=== PATIENT | female | born 1960 | race African-American/Black ===

== ENCOUNTER 2019-02-22 18:10 | Inpatient (IN) | payer OTHER ==
[~2019-02-22] VITALS: Ht 175.3 cm; Wt 81.4 kg
[2019-02-22 18:15] VITALS: Ht 175.3 cm; Wt 81.4 kg
[2019-02-22 21:19] LABS: BASOPHIL % 0.4 % (0-2); PLATELET COUNT 208 x10^3mcL (130-400)
[2019-02-22 21:31] LABS: CALCIUM 9.1 mg/dL (8.5-10.1); CARBON DIOXIDE 23.2 mmol/L (21-32); CREATININE SERUM 1.1 mg/dL (0.6-1.0); POTASSIUM SERUM 4.2 mmol/L (3.5-5.1)
[2019-02-22 21:36] LABS: ALBUMIN 3.9 g/dL (3.4-5.0); BILIRUBIN TOTAL 0.4 mg/dL (0.20-1.00); TOTAL PROTEIN, SERUM 8.1 g/dL (6.4-8.2)
[2019-02-23] MEDS ORDERED: AMBIEN5 MG PO (05:55)
[2019-02-23] MEDS ORDERED: DILANTIN100 MG PO (05:55)
[2019-02-23] MEDS ORDERED: PERCOCET1 TA5 PO (05:55)
[2019-02-23] MEDS ORDERED: KEPPRA1000 M1 PO (05:55)
[2019-02-23] MEDS ORDERED: ATIVAN0.5 M1 PO (05:56)
[2019-02-23 08:47] VITALS: BP 135/90
[2019-02-23 09:46] VITALS: BP 135/90
[2019-02-23 12:44] LABS: microscopic required? NO
[2019-02-23 13:01] LABS: urine erythrocyte NEGATIVE (NEGATIVE)
[2019-02-23 16:50] VITALS: BP 133/59
[2019-02-23 18:06] VITALS: BP 133/59
[2019-02-23 20:02] VITALS: BP 145/79
[2019-02-23 22:06] VITALS: BP 124/66
[2019-02-24 05:55] VITALS: BP 106/61
[2019-02-24 06:33] LABS: BASOPHIL % 0.4 % (0-2); PLATELET COUNT 216 x10^3mcL (130-400)
[2019-02-24 06:40] LABS: CALCIUM 7.9 mg/dL (8.5-10.1); CHLORIDE SERUM 109 mmol/L (98-107); CREATININE SERUM 0.8 mg/dL (0.6-1.0); GFR1 > 60 mL/min; GLUCOSE SERUM 100 mg/dL (74-106); MAGNESIUM 1.7 mg/dL (1.8-2.4); PHOSPHOROUS 4.4 mg/dL (2.5-4.9); POTASSIUM SERUM 4.5 mmol/L (3.5-5.1); SODIUM SERUM 141 mmol/L (136-145)
[2019-02-24 06:41] LABS: RED CELL DISTRIBUTION WIDTH 15.4 % (11.5-14.5)
[2019-02-24 10:03] VITALS: BP 96/49
[2019-02-24] MEDS ORDERED: ACYCLOVIR400 MG PO ×2 (10:51→10:52)
[2019-02-24 12:13] VITALS: BP 111/69
[2019-02-24 17:03] VITALS: BP 128/64
[2019-02-24 20:38] VITALS: BP 110/52
[2019-02-25 05:15] VITALS: BP 135/81
[2019-02-25 06:43] LABS: BASOPHIL % 0.3 % (0-2); PLATELET COUNT 196 x10^3mcL (130-400)
[2019-02-25 07:07] LABS: CALCIUM 7.8 mg/dL (8.5-10.1); CARBON DIOXIDE 24.8 mmol/L (21-32); CHLORIDE SERUM 111 mmol/L (98-107); CREATININE SERUM 0.8 mg/dL (0.6-1.0); GFR1 > 60 mL/min; GLUCOSE SERUM 88 mg/dL (74-106); POTASSIUM SERUM 4.1 mmol/L (3.5-5.1); SODIUM SERUM 144 mmol/L (136-145)
[2019-02-25 07:48] LABS: RED CELL DISTRIBUTION WIDTH 15.6 % (11.5-14.5)
== END 2019-02-25 06:28 | disposition home or self-care (01) | DRG 203 ==
LOC: ED 18:10 → MU 02-23 05:45 → DU 02-23 05:45 → MU 02-23 06:19 → DU 02-23 13:19 → MU 02-24 11:50
PROVIDERS: Emergency Medicine; Internal Medicine; ADMIT Internal Medicine
PROC: 02HV33Z Insertion of Infusion Device into Superior Vena Cava, Percutaneous Approach (ICD-10-PCS; principal; 2019-02-23)
PROC: B548ZZA Ultrasonography of Superior Vena Cava, Guidance (ICD-10-PCS; 2019-02-23)
DX: R07.9 Chest pain, unspecified (principal); B00.9 Herpesviral infection, unspecified; F17.210 Nicotine dependence, cigarettes, uncomplicated; M79.7 Fibromyalgia; G89.29 Other chronic pain; G40.909 Epilepsy, unspecified, not intractable, without status epilepticus; Z53.29 Procedure and treatment not carried out because of patient's decision for other reasons; I10 Essential (primary) hypertension; M54.5 Low back pain; Z98.84 Bariatric surgery status; Z23 Encounter for immunization; Z88.6 Allergy status to analgesic agent; Z91.018 Allergy to other foods
CPT/HCPCS: 85378; 90658; G0378; J2001; J2270; J3010; J7030; J7040; Q0092; Q9967

== ENCOUNTER 2019-04-01 18:49 | Emergency (ER) | payer OTHER ==
[~2019-04-01] VITALS: Ht 175.3 cm; Wt 85.7 kg
[~2019-04-01 18:49] MED LIST: ACYCLOVIR400 MG PO; AMBIEN5 MG PO; ATIVAN0.5 M1 PO; DILANTIN100 MG PO; KEPPRA1000 M1 PO; PERCOCET1 TA5 PO
[2019-04-01 19:05] VITALS: Ht 175.3 cm; Wt 85.7 kg
[2019-04-01 20:36] VITALS: BP 160/101
== END 2019-04-01 20:36 | disposition home or self-care (01) ==
LOC: ED 18:49
DX: J06.9 Acute upper respiratory infection, unspecified (principal); B00.9 Herpesviral infection, unspecified; G89.29 Other chronic pain; M54.9 Dorsalgia, unspecified; Z88.6 Allergy status to analgesic agent; Z88.8 Allergy status to other drugs, medicaments and biological substances

== ENCOUNTER 2019-04-21 17:29 | Emergency (ER) | payer OTHER ==
[~2019-04-21] VITALS: Ht 175.3 cm; Wt 85.3 kg
[2019-04-21 17:34] VITALS: Ht 175.3 cm; Wt 85.3 kg
[2019-04-21 20:26] LABS: CALCIUM 9.3 mg/dL (8.5-10.1); CARBON DIOXIDE 21.3 mmol/L (21-32); CHLORIDE SERUM 105 mmol/L (98-107); CREATININE SERUM 0.9 mg/dL (0.6-1.0); GFR1 > 60 mL/min; GLUCOSE SERUM 85 mg/dL (74-106); POTASSIUM SERUM 4.5 mmol/L (3.5-5.1); SODIUM SERUM 136 mmol/L (136-145)
[2019-04-21 20:32] LABS: ALBUMIN 3.8 g/dL (3.4-5.0); ALKALINE PHOSPHATASE 76 U/L (46-116); ALT/SGPT 21 U/L (14-59); AST/SGOT 18 U/L (15-37); BILIRUBIN TOTAL 0.6 mg/dL (0.20-1.00); LIPASE 140 IU/L (73-393); TOTAL PROTEIN, SERUM 7.3 g/dL (6.4-8.2)
[2019-04-21 21:14] LABS: BASOPHIL % 0.6 % (0-2); PLATELET COUNT 244 x10^3mcL (130-400); RED CELL DISTRIBUTION WIDTH 14.6 % (11.5-14.5)
[2019-04-21 23:17] VITALS: BP 151/58
== END 2019-04-21 23:17 | disposition home or self-care (01) ==
LOC: ED 17:29
PROVIDERS: Emergency Medicine
DX: R07.89 Other chest pain (principal); R10.32 Left lower quadrant pain; F17.210 Nicotine dependence, cigarettes, uncomplicated; M79.7 Fibromyalgia; Z98.84 Bariatric surgery status; Z88.6 Allergy status to analgesic agent; Z88.8 Allergy status to other drugs, medicaments and biological substances
CPT/HCPCS: 83880; J2405; J3010; J3490; J7030

== ENCOUNTER 2019-05-14 07:59 | Emergency (ER) | payer OTHER ==
[~2019-05-14] VITALS: Ht 167.6 cm; Wt 81.6 kg
[2019-05-14 11:00] VITALS: BP 173/84
== END 2019-05-14 11:00 | disposition home or self-care (01) ==
LOC: ED 07:59
DX: M54.42 Lumbago with sciatica, left side (principal); Z88.6 Allergy status to analgesic agent; Z98.84 Bariatric surgery status

== ENCOUNTER 2019-06-28 17:41 | Emergency (ER) | payer OTHER ==
[~2019-06-28] VITALS: Ht 162.6 cm; Wt 86.2 kg
[2019-06-28 18:01] VITALS: Ht 162.6 cm; Wt 86.2 kg
[2019-06-28 18:26] LABS: BASOPHIL % 0.7 % (0-2); PLATELET COUNT 360 x10^3mcL (130-400)
[2019-06-28 18:36] LABS: CALCIUM 8.9 mg/dL (8.5-10.1); CARBON DIOXIDE 23.3 mmol/L (21-32); CHLORIDE SERUM 109 mmol/L (98-107); CREATININE SERUM 0.9 mg/dL (0.6-1.0); GFR1 > 60 mL/min; GLUCOSE SERUM 73 mg/dL (74-106); POTASSIUM SERUM 3.9 mmol/L (3.5-5.1); SODIUM SERUM 142 mmol/L (136-145)
[2019-06-28 18:41] LABS: ALBUMIN 3.7 g/dL (3.4-5.0); ALKALINE PHOSPHATASE 92 U/L (46-116); ALT/SGPT 15 U/L (14-59); AST/SGOT 13 U/L (15-37); BILIRUBIN TOTAL 0.23 mg/dL (0.20-1.00); LIPASE 113 IU/L (73-393); TOTAL PROTEIN, SERUM 8.1 g/dL (6.4-8.2)
[2019-06-28 21:06] VITALS: BP 150/80
== END 2019-06-28 21:06 | disposition home or self-care (01) ==
LOC: ED 17:41
PROVIDERS: Emergency Medicine
DX: B00.2 Herpesviral gingivostomatitis and pharyngotonsillitis (principal); M54.9 Dorsalgia, unspecified; G89.29 Other chronic pain; Z88.6 Allergy status to analgesic agent; Z88.8 Allergy status to other drugs, medicaments and biological substances; Z90.49 Acquired absence of other specified parts of digestive tract
CPT/HCPCS: 36415; J2270; Q0162

== ENCOUNTER 2019-07-23 19:04 | Emergency (ER) | payer OTHER ==
[~2019-07-23] VITALS: Ht 165.1 cm; Wt 86.2 kg
[2019-07-23 20:20] LABS: BASOPHIL % 0.6 % (0-2); PLATELET COUNT 315 x10^3mcL (130-400)
[2019-07-23 20:21] LABS: RED CELL DISTRIBUTION WIDTH 15.1 % (11.5-14.5)
[2019-07-23 20:36] LABS: CALCIUM 9.3 mg/dL (8.5-10.1); CARBON DIOXIDE 22.9 mmol/L (21-32); CHLORIDE SERUM 106 mmol/L (98-107); GFR1 > 60 mL/min; GLUCOSE SERUM 79 mg/dL (74-106); POTASSIUM SERUM 4.1 mmol/L (3.5-5.1); SODIUM SERUM 141 mmol/L (136-145)
[2019-07-23 20:39] LABS: ALBUMIN 3.7 g/dL (3.4-5.0); ALKALINE PHOSPHATASE 91 U/L (46-116); ALT/SGPT 22 U/L (14-59); AST/SGOT 13 U/L (15-37); BILIRUBIN TOTAL 0.3 mg/dL (0.20-1.00); LIPASE 123 IU/L (73-393)
[2019-07-23 21:29] VITALS: BP 120/75; Ht 165.1 cm; Wt 86.2 kg
== END 2019-07-23 21:29 | disposition home or self-care (01) ==
LOC: ED 19:04
PROVIDERS: Emergency Medicine
DX: R05 Cough (principal); R19.7 Diarrhea, unspecified; Z98.84 Bariatric surgery status; M79.7 Fibromyalgia; Z88.2 Allergy status to sulfonamides; Z88.6 Allergy status to analgesic agent; Z88.8 Allergy status to other drugs, medicaments and biological substances
CPT/HCPCS: 36415; Q0092

== ENCOUNTER 2019-09-22 19:29 | Emergency (ER) | payer OTHER ==
[~2019-09-22] VITALS: Ht 167.6 cm; Wt 99.3 kg
[2019-09-22 19:51] VITALS: Ht 167.6 cm; Wt 99.3 kg
[2019-09-22 21:57] LABS: CALCIUM 9.1 mg/dL (8.5-10.1); CARBON DIOXIDE 24.2 mmol/L (21-32); CHLORIDE SERUM 106 mmol/L (98-107); GFR1 > 60 mL/min; GLUCOSE SERUM 83 mg/dL (74-106); POTASSIUM SERUM 4.6 mmol/L (3.5-5.1); SODIUM SERUM 141 mmol/L (136-145)
[2019-09-22 22:02] LABS: ALBUMIN 3.9 g/dL (3.4-5.0); ALKALINE PHOSPHATASE 76 U/L (46-116); ALT/SGPT 16 U/L (14-59); AST/SGOT 21 U/L (15-37); BILIRUBIN TOTAL 0.3 mg/dL (0.20-1.00); TOTAL PROTEIN, SERUM 8.1 g/dL (6.4-8.2)
[2019-09-22 22:08] LABS: BASOPHIL % 0.8 % (0-2)
[2019-09-22 22:10] LABS: RED CELL DISTRIBUTION WIDTH 14.7 % (11.5-14.5)
[2019-09-22 22:24] LABS: PLATELET COUNT 244 x10^3mcL (130-400)
[2019-09-23 00:56] VITALS: BP 152/79
== END 2019-09-23 00:13 | disposition home or self-care (01) ==
LOC: ED 19:29
DX: G89.29 Other chronic pain (principal); R10.817 Generalized abdominal tenderness; M79.7 Fibromyalgia; M10.9 Gout, unspecified; Z88.6 Allergy status to analgesic agent; Z88.8 Allergy status to other drugs, medicaments and biological substances; Z90.49 Acquired absence of other specified parts of digestive tract
CPT/HCPCS: 36415; Q0092

== ENCOUNTER 2019-12-11 03:56 | Emergency (ER) | payer OTHER ==
[~2019-12-11] VITALS: Ht 175.3 cm; Wt 127.0 kg
[2019-12-11 04:06] VITALS: Ht 175.3 cm; Wt 127.0 kg
[2019-12-11 05:42] VITALS: BP 138/76
== END 2019-12-11 05:42 | disposition home or self-care (01) ==
LOC: ED 03:56
DX: M54.32 Sciatica, left side (principal); M54.31 Sciatica, right side; B00.9 Herpesviral infection, unspecified
CPT/HCPCS: J2270; J2920

== ENCOUNTER 2020-03-14 08:17 | Emergency (ER) | payer OTHER, SELFPAY ==
[~2020-03-14] VITALS: Ht 172.7 cm; Wt 113.4 kg
[2020-03-14 08:18] VITALS: Ht 172.7 cm; Wt 113.4 kg
[2020-03-14 09:21] VITALS: BP 136/65
== END 2020-03-14 09:21 | disposition home or self-care (01) ==
LOC: ED 08:17
DX: A60.00 Herpesviral infection of urogenital system, unspecified (principal); M79.7 Fibromyalgia; M10.9 Gout, unspecified; Z86.73 Personal history of transient ischemic attack (TIA), and cerebral infarction without residual deficits; Z88.6 Allergy status to analgesic agent; Z20.828 Contact with and (suspected) exposure to other viral communicable diseases
CPT/HCPCS: U0003

== ENCOUNTER 2020-03-28 05:38 | Emergency (ER) | payer OTHER ==
[~2020-03-28] VITALS: Ht 175.3 cm; Wt 110.3 kg
[2020-03-28 05:51] VITALS: BP 100/82; Ht 175.3 cm; Wt 110.3 kg
== END 2020-03-28 07:54 | disposition home or self-care (01) ==
LOC: ED 05:38
DX: L91.8 Other hypertrophic disorders of the skin (principal); F17.210 Nicotine dependence, cigarettes, uncomplicated; M79.7 Fibromyalgia; Z98.84 Bariatric surgery status; Z88.6 Allergy status to analgesic agent; Z88.8 Allergy status to other drugs, medicaments and biological substances
CPT/HCPCS: J2001

== ENCOUNTER 2020-07-02 12:38 | Emergency (ER) | payer OTHER ==
[~2020-07-02] VITALS: Ht 175.3 cm; Wt 117.5 kg
[2020-07-02 13:09] VITALS: Ht 175.3 cm; Wt 117.5 kg
[2020-07-02] MEDS ORDERED: VALACYCLOVIR1 GM PO (15:53)
[2020-07-02] MEDS ORDERED: PERCOCET1 TAB PO (15:53)
[2020-07-02 16:11] VITALS: BP 158/99
== END 2020-07-02 16:11 | disposition home or self-care (01) ==
LOC: ED 12:38
DX: M54.5 Low back pain (principal); B00.9 Herpesviral infection, unspecified; M79.7 Fibromyalgia; M10.9 Gout, unspecified; Z90.710 Acquired absence of both cervix and uterus; Z86.73 Personal history of transient ischemic attack (TIA), and cerebral infarction without residual deficits; Z88.6 Allergy status to analgesic agent
CPT/HCPCS: 83880; J2270; J2274; Q0162